=== PATIENT | male | born 1960 | race Caucasian/White ===

== ENCOUNTER 2017-01-25 19:21 | Emergency (ER) | payer OTHER, BC | END 2017-01-25 22:46 | disposition home or self-care (01) | LOC: ER 19:21 | DX: S13.4XXA Sprain of ligaments of cervical spine, initial encounter (principal); S23.3XXA Sprain of ligaments of thoracic spine, initial encounter; S33.5XXA Sprain of ligaments of lumbar spine, initial encounter; V43.52XA Car driver injured in collision with other type car in traffic accident, initial encounter; Y92.413 State road as the place of occurrence of the external cause; Z79.899 Other long term (current) drug therapy | CPT/HCPCS: 72125; 72128; 72131; 99283-25; 99284 ==